=== PATIENT | female | born 1995 | race Caucasian/White ===

== ENCOUNTER 2016-04-21 19:23 | Emergency (ER) | payer OTHER ==
[2016-04-21 19:44] VITALS: RESP 16; TEMP 99.6
[2016-04-21] MEDS ORDERED: ACETAMINOPHEN TAB 325 MG TAB PO STA (20:15)
[2016-04-21] MEDS ORDERED: IBUPROFEN 600 MG TAB PO STA (20:21)
--- NOTE | 2016-04-21 20:21 | ED ---
ENT HPI - General Chief complaint: ENT Stated complaint: Dizzy Time Seen by Provider: 04/21/16 19:56 Source: patient Mode of arrival: ambulatory Limitations: no limitations - History of Present Illness Initial comments: Patient is a 20-year-old female presenting to the emergency department with chief complaint of sore throat. Patient states that her sore throat started last night. Patient states that this morning the sore throat pain intensified and she also starting having pain in both her ears. Patient states that her throat pain feels like burning and it hurts to swallow. Patient also complains of body aches and headache. Patient states she she didn't drink anything all day. Patient states she stayed in bed most of the day and when she got up she felt dizzy. Patient denies sick contacts, fevers, nausea, vomiting, shortness of breath, chest pain, abdominal pain, urinary frequency, urgency, hematuria, constipation or diarrhea. Patient denies leg swelling. No new rashes or lesions. Patient reports that she did receive her influenza immunization. Patient is up-to-date on immunizations. Patient denies antibiotics last 30 days. Patient denies any treatment prior to arrival. - Related Data Home Medications Medication Instructions Recorded Confirmed Cetirizine HCl [Zyrtec] 10 mg PO DAILY 08/29/13 04/21/16 Previous Rx's Medication Instructions Recorded Penicillin V Potassium [Pen Vee K] 500 mg PO BID #20 tab 04/21/16 Allergies Allergy/AdvReac Type Severity Reaction Status Date / Time latex Allergy Unknown Verified 04/21/16 19:44 Review of Systems ROS Statement: Those systems with pertinent positive or pertinent negative responses have been documented in the HPI. ROS Other: All systems not noted in ROS Statement are negative. Past Medical History Past Medical History: Asthma History of Any Multi-Drug Resistant Organisms: None Reported Past Surgical History: No Surgical Hx Reported Additional Past Surgical History / Comment(s): cyst removal on (R) eye. Past Psychological History: ADD/ADHD Smoking Status: Never smoker Past Alcohol Use History: None Reported Past Drug Use History: None Reported General Exam Limitations: no limitations General appearance: alert, in no apparent distress Head exam: Present: atraumatic, normocephalic, normal inspection Eye exam: Present: normal appearance, PERRL. Absent: scleral icterus, conjunctival injection, periorbital swelling, periorbital tenderness Expanded Ear exam: Present: normal external inspection Mouth exam: Present: normal external inspection, tongue normal. Absent: drooling, trismus Teeth exam: Present: normal inspection Throat exam: other (Erythema to posterior pharynx). negative: tonsillar erythema, tonsillomegaly, tonsillar exudate, R peritonsillar mass, L peritonsillar mass Neck exam: Present: normal inspection, full ROM, lymphadenopathy (Bilateral cervical anterior lymphadenopathy) Respiratory exam: Present: normal lung sounds bilaterally. Absent: respiratory distress, wheezes, rales, rhonchi, stridor Cardiovascular Exam: Present: normal rhythm, tachycardia, normal heart sounds GI/Abdominal exam: Present: soft, normal bowel sounds. Absent: tenderness Extremities exam: Present: normal inspection, full ROM. Absent: tenderness Back exam: Present: normal inspection, full ROM. Absent: tenderness, CVA tenderness (R), CVA tenderness (L) Neurological exam: Present: alert, oriented X3, normal gait, other (No focal deficits) Psychiatric exam: Present: normal affect, normal mood Skin exam: Present: warm, dry, intact, normal color Course Vital Signs 04/21/16 04/21/16 19:40 20:22 Temperature 99.6 F Pulse Rate 110 H Pulse Rate [ 124 H Sitting Pulse Oximetery] Pulse Rate [ 125 H Standing Pulse Oximetery] Pulse Rate [ 104 H Supine Pulse Oximetery] Respiratory 16 Rate Blood Pressure 123/70 Blood Pressure 115/64 [Right Arm Sitting] Blood Pressure 117/58 [Right Arm Standing] Blood Pressure 117/63 [Right Arm Supine] O2 Sat by Pulse 99 Oximetry Medical Decision Making - Medical Decision Making Group a Streptococcus pharyngitis. Patient prescribed Penicillin VK 500 mg by mouth twice a day 10 days. Patient given first dose in the emergency department. Patient instructed on supportive therapy. Discharge instructions and return parameters reviewed. - Lab Data Lab Results 04/21/16 04/21/16 Range/Units 20:12 20:12 Influenza Type A RNA Not Detected (Not Detectd) Influenza Type B (PCR) Not Detected (Not Detectd) Group A Strep Rapid Positive A (Negative) Disposition Clinical Impression: Streptococcal sore throat Disposition: HOME SELF-CARE Condition: Good Instructions: Strep Throat (ED) Additional Instructions: Continue Motrin for pain, Tylenol for fevers, may use throat last inches, may use salt water gargles. Continue soft and cold foods. Increase fluid intake to 6-8 glasses of water a day. Follow-up with primary care physician as needed. Patient returns to emergency department if symptoms do not improve or get worse. Prescriptions: Penicillin V Potassium [Pen Vee K] 500 mg PO BID #20 tab Referrals: Tam Helton MD [Primary Care Provider] - 1-2 days Time of Disposition: 20:39
[2016-04-21 20:23] VITALS: BP 117/63; PULSE 104
[2016-04-21] MEDS ORDERED: PENICILLIN V POTASSIUM 250 MG TAB PO STA (20:33)
== END 2016-04-21 21:05 | disposition home or self-care (01) ==
LOC: EC 19:23
DX: J02.0 Streptococcal pharyngitis (principal); Z91.040 Latex allergy status
CPT/HCPCS: 87430; 87502; 99284

== ENCOUNTER 2017-10-14 23:04 | Emergency (ER) | payer OTHER ==
--- NOTE | 2017-10-15 01:15 | ED ---
General Adult HPI - General Chief complaint: Head Injury Stated complaint: FALL,HEAD INJURY, 6' FALL Time Seen by Provider: 10/15/17 00:47 Source: patient, RN notes reviewed Mode of arrival: ambulatory Limitations: no limitations - History of Present Illness Initial comments: Milena is a pleasant 22-year-old female presenting to the emergency department following a fall. Incident occurred close to 3 hours ago now. Patient was doing acrobatics. Patient fell approximately 6 feet. Patient landed on her back in the back of her head. Patient states she had the wind knocked out of her however has been otherwise breathing fine since that time. Patient does have mild discomfort of her back. Patient has more discomfort of her neck. Patient also somewhat of a headache. Patient has had some blurred vision is now near resolved. No confusion. No speech problems. No isolated area of weakness. - Related Data Home Medications Medication Instructions Recorded Confirmed Cetirizine HCl [Zyrtec] 10 mg PO DAILY 08/29/13 04/21/16 Previous Rx's Medication Instructions Recorded Penicillin V Potassium [Pen Vee K] 500 mg PO BID #20 tab 04/21/16 Allergies Allergy/AdvReac Type Severity Reaction Status Date / Time latex Allergy Unknown Verified 04/21/16 19:44 Review of Systems ROS Statement: Those systems with pertinent positive or pertinent negative responses have been documented in the HPI. ROS Other: All systems not noted in ROS Statement are negative. Constitutional: Denies: fever Eyes: Denies: eye pain ENT: Denies: ear pain Respiratory: Denies: cough Cardiovascular: Denies: chest pain Endocrine: Denies: fatigue Gastrointestinal: Denies: abdominal pain Genitourinary: Denies: dysuria Musculoskeletal: Denies: arthralgia Skin: Denies: rash Neurological: Reports: headache. Denies: weakness, confusion Past Medical History Past Medical History: Asthma History of Any Multi-Drug Resistant Organisms: None Reported Past Surgical History: No Surgical Hx Reported Additional Past Surgical History / Comment(s): cyst removal on (R) eye. Past Psychological History: ADD/ADHD Smoking Status: Never smoker Past Alcohol Use History: None Reported Past Drug Use History: None Reported General Exam Limitations: no limitations General appearance: alert, in no apparent distress Head exam: Present: atraumatic, normocephalic Eye exam: Present: normal appearance, PERRL, EOMI. Absent: nystagmus ENT exam: Present: normal oropharynx Neck exam: Present: normal inspection, tenderness (Mild tenderness to the upper cervical spine) Respiratory exam: Present: normal lung sounds bilaterally. Absent: chest wall tenderness Cardiovascular Exam: Present: regular rate, normal rhythm GI/Abdominal exam: Present: soft. Absent: distended, tenderness Extremities exam: Present: normal inspection Back exam: Present: tenderness (Mild tenderness T4/T5 and T8/T9.) Neurological exam: Present: alert, oriented X3, CN II-XII intact. Absent: motor sensory deficit Expanded Neurological exam: Present: protecting the airway Patient oriented to: Present: person, place, time Speech: Present: fluid speech Cranial nerves: EOM's Intact: Normal, Facial Sensation: Normal Cerebellar function: Finger to Nose: Normal Sensory exam: Upper Extremity Light Touch: Normal, Lower Extremity Light Touch: Normal Motor strength exam: RUE: 5, LUE: 5, RLE: 5, LLE: 5 Eye Response: (4) open spontaneously Motor Response: (6) obeys commands Verbal Response: (5) oriented Psychiatric exam: Present: normal affect, normal mood Skin exam: Present: normal color Course Vital Signs 10/14/17 23:08 Temperature 98.5 F Pulse Rate 81 Respiratory 18 Rate Blood Pressure 101/70 O2 Sat by Pulse 100 Oximetry Medical Decision Making - Medical Decision Making Patient reevaluated and updated. Patient refuses medication. - Radiology Data Radiology results: report reviewed (Computed tomography scan of the brain and cervical spine reveal no acute process.), image reviewed (X-ray of the thoracic spine shows no acute process. Two-view chest x-ray shows no acute process.) Disposition Clinical Impression: Head injury Disposition: HOME SELF-CARE Condition: Stable Instructions: Head Injury (ED) Additional Instructions: Please follow-up with primary care physician in the next day or 2 for recheck. Return for persistent vomiting, increased pain, confusion, coordination problems , worsening symptoms or other concerns. [id number] Tylenol as needed. Is patient prescribed a controlled substance at d/c from ED?: No Referrals: Tam Helton MD [Primary Care Provider] - 1-2 days Time of Disposition: 02:14
--- NOTE | 2017-10-15 01:37 | XR ---
EXAMINATION TYPE: XR chest 2V DATE OF EXAM: 10/15/2017 COMPARISON: NONE HISTORY: Chest pain TECHNIQUE: Frontal and lateral views of the chest are obtained. FINDINGS: Heart and mediastinum are normal. Lungs are clear. Diaphragm is normal. Bony thorax is int act. IMPRESSION: Normal chest. No change.
--- NOTE | 2017-10-15 01:38 | XR ---
EXAMINATION TYPE: XR thoracic spine complete DATE OF EXAM: 10/15/2017 COMPARISON: NONE HISTORY: Back pain TECHNIQUE: 3 views FINDINGS: The thoracic vertebra have normal spacing and alignment. Posterior elements are intact. The re is no paraspinal mass. IMPRESSION: Negative thoracic spine exam.
--- NOTE | 2017-10-15 01:42 | CT ---
EXAMINATION TYPE: CT brain yg wo con DATE OF EXAM: 10/15/2017 COMPARISON: 12/28/2013 HISTORY: Fall headache. Neck pain. CT DLP: 1392.90 mGycm Automated exposure control for dose reduction was used. TECHNIQUE: CT scan of the head and cervical spine are performed without contrast. FINDINGS: Ventricles and sulci appear normal. There is no mass effect nor midline shift. There is n o sign of intracranial hemorrhage. The calvarium is intact. Cervical vertebra have fairly normal spacing and alignment. Posterior elements are intact but facet j oints appear normal. The skull base is intact. IMPRESSION: Negative CT scan of the brain. Negative CT scan of the cervical spine. No change.
[2017-10-15 02:23] VITALS: BP 115/56; PULSE 74; RESP 16; TEMP 98.1
== END 2017-10-15 02:21 | disposition home or self-care (01) ==
LOC: SUPCPDRO 23:04 → EC 23:04
DX: S09.90XA Unspecified injury of head, initial encounter (principal); R40.2142 Coma scale, eyes open, spontaneous, at arrival to emergency department; R40.2252 Coma scale, best verbal response, oriented, at arrival to emergency department; R40.2362 Coma scale, best motor response, obeys commands, at arrival to emergency department; Z53.29 Procedure and treatment not carried out because of patient's decision for other reasons; Z79.899 Other long term (current) drug therapy; Z91.040 Latex allergy status; W17.89XA Other fall from one level to another, initial encounter; Y93.89 Activity, other specified
CPT/HCPCS: 70450; 71046; 72072; 72125; 99284